=== PATIENT | female | born 1985 ===

== ENCOUNTER 2017-07-10 02:19 | Emergency (ER) | payer OTHER ==
[2017-07-10 02:33] VITALS: RESP 16; TEMP 97.1
--- NOTE | 2017-07-10 02:53 | ED PDOC ---
Arrival/HPI - General Chief Complaint: Female Genitourinary Time Seen by Provider: 07/10/17 02:50 Historian: Patient - History of Present Illness Narrative History of Present Illness (Text): 07/10/17 02:57 32 year old female (A1) at 6 weeks gestation, with no significant past medical history, presents to the Emergency Department complaining of lower abdominal pain and vaginal bleeding since earlier this evening. Patient states confirming her through home test and did not visit a visit. Patient informs her last menstrual cycle was in May. Patient denies any STIs, syncopy, fever, chills, chest pain, shortness of breath , nausea, vomiting or any other complaints. Time/Duration: 4-6 hours Symptom Onset: Gradual Symptom Course: Unchanged Activities at Onset: Light Context: Home Past Medical History - Provider Review Nursing Documentation Reviewed: Yes - Psychiatric Hx Substance Use: No Family/Social History - Physician Review Nursing Documentation Reviewed: Yes Family/Social History: Unknown Family HX Smoking Status: Never Smoked Hx Alcohol Use: Yes Frequency of alcohol use: Socially Hx Substance Use: No Allergies/Home Meds Allergies/Adverse Reactions: Allergies No Known Allergies Allergy (Verified 07/10/17 02:35) Review of Systems - Physician Review All systems were reviewed & negative as marked: Yes - Review of Systems Constitutional: Normal. absent: Fevers Eyes: Normal ENT: Normal Respiratory: Normal. absent: SOB Cardiovascular: Normal. absent: Chest Pain Gastrointestinal: Abdominal Pain (lower abdominal pain ). absent: Nausea, Vomiting Genitourinary Female: Vaginal Bleeding Musculoskeletal: Normal Skin: Normal Neurological: Normal Endocrine: Normal Hemo/Lymphatic: Normal Psychiatric: Normal Physical Exam Vital Signs Reviewed: Yes Vital Signs Temp Pulse Resp BP Pulse Ox 07/10/17 04:25 75 16 104/75 99 07/10/17 02:29 97.1 F L 70 16 112/76 100 Temperature: Afebrile Blood Pressure: Normal Pulse: Regular Respiratory Rate: Normal Appearance: Positive for: Well-Appearing, Non-Toxic, Comfortable Pain Distress: None Mental Status: Positive for: Alert and Oriented X 3 - Systems Exam Head: Present: Atraumatic, Normocephalic Pupils: Present: PERRL Extroacular Muscles: Present: EOMI Conjunctiva: Present: Normal Mouth: Present: Moist Mucous Membranes Neck: Present: Normal Range of Motion Respiratory/Chest: Present: Clear to Auscultation, Good Air Exchange. No: Respiratory Distress, Accessory Muscle Use Cardiovascular: Present: Regular Rate and Rhythm, Normal S1, S2. No: Murmurs Abdomen: Present: Tenderness (diffused lower abdominal mild discomfort to palpation ), Normal Bowel Sounds. No: Distention, Peritoneal Signs, Rebound, Guarding Genitourinary/Pelvic Exam: Present: Vaginal Bleeding (10 cc of blood in vault ) , Cervical os Closed. No: Adenexal Tenderness, Adenexal Mass Back: Present: Normal Inspection Upper Extremity: Present: Normal Inspection. No: Cyanosis, Edema Lower Extremity: Present: Normal Inspection. No: Edema Neurological: Present: GCS=15, CN II-XII Intact, Speech Normal Skin: Present: Warm, Dry, Normal Color. No: Rashes Psychiatric: Present: Alert, Oriented x 3, Normal Insight, Normal Concentration Medical Decision Making ED Course and Treatment: 07/10/17 02:52 Impression: 32 year old female presents to the Emergency Department for vaginal bleeding. Differential Diagnosis included but are not limited to: ectopic vs threatened miscarriage Plan: -- Urinalysis -- Blood Type and Screen -- transvaginal US -- Reassess and disposition Progress Notes: 07/10/17 03:58 Transabdominal OB ultrasound reviewed by radiologist, shows: FINDINGS: Gestation: No intrauterine gestational sac. Uterus/cervix: Endometrium: 0.9 cm in thickness. Closed cervix. Ovaries: Normal ovaries. No adnexal masses. Free fluid: No significant free fluid. IMPRESSION: 1. No intrauterine gestation. DDX: Early IUP, missed , ectopic 07/10/17 03:58 Transvaginal Ultrasound reviewed by radiologist, shows: FINDINGS: Gestation: No intrauterine gestational sac. Uterus/cervix: Endometrium: 0.9 cm in thickness. Closed cervix. Ovaries: Normal ovaries. No adnexal masses. Free fluid: No significant free fluid. IMPRESSION: 1. No intrauterine gestation. DDX: Early IUP, missed , ectopic . 07/10/17 04:[address] Fallon, who feels the is on its very early stage. He asks patient to visit [facility] in 48 hours for a repeat hCG. If however, patient faces any worsening symptoms in regards to abdominal pain, syncope or heavy vaginal bleeding, patient is instructed to visit the nearest Emergency Department . - Lab Interpretations Lab Results: 07/10/17 03:05 07/10/17 03:05 Lab Results 07/10/17 03:53: Blood Type Confirm O POSITIVE 07/10/17 03:15: Urine Color Red, Urine Appearance Cloudy, Urine pH 7.5, Ur Specific [place] 1.020, Urine Protein >=300 H, Urine Glucose (UA) Negative, Urine Ketones 15 H, Urine Blood Large H, Urine Nitrate Positive H, Urine Bilirubin Large H, Urine Urobilinogen 2.0 H, Ur Leukocyte Esterase Large H, Urine RBC 15 - 20, Urine WBC 5 - 10, Ur Epithelial Cells 0 - 2, Urine Bacteria Small 07/10/17 03:05: Blood Type O POSITIVE, Antibody Screen Negative, BBK History Checked No verified bt 07/10/17 03:05: Beta HCG, Quant 1807.70 H 07/10/17 03:05: Sodium 140, Potassium 4.4, Chloride 107, Carbon Dioxide 24, Anion Gap 13, BUN 10, Creatinine 0.7, Est GFR ( Amer) > 60, Est GFR (Non- Af Amer) > 60, Random Glucose 91, Calcium 10.7 H, Total Bilirubin 0.5, AST 39 H , ALT 29, Alkaline Phosphatase 55, Total Protein 7.7, Albumin 4.5, Globulin 3.3 , Albumin/Globulin Ratio 1.4 07/10/17 03:05: WBC 8.7, RBC 4.26, Hgb 12.6, Hct 37.8, MCV 88.7, MCH 29.6, MCHC 33.3, RDW 12.6, Plt Count 166, MPV 10.9, Gran % 62.4, Lymph % (Auto) 26.0, [place] % (Auto) 10.6 H, Eos % (Auto) 0.9 L, Baso % (Auto) 0.1, Gran # 5.44, Lymph # 2.3 , [place] # 0.9 H, Eos # 0.1, Baso # 0.01 - RAD Interpretation Radiology Orders: 07/10/17 02:57 OB TRANSVAGINAL [US] Stat Communications Supervisor: Radiologist - Scribe Statement The provider has reviewed the documentation as recorded by the Scribe Hortensia Jade. All medical record entries made by the Scribe were at my direction and personally dictated by me. I have reviewed the chart and agree that the record accurately reflects my personal performance of the history, physical exam, medical decision making, and the department course for this patient. I have also personally directed, reviewed, and agree with the discharge instructions and disposition. Disposition/Present on Arrival - Present on Arrival Any Indicators Present on Arrival: No History of DVT/PE: No History of Uncontrolled Diabetes: No Urinary Catheter: No History of Decub. Ulcer: No History Surgical Site Infection Following: None - Disposition Have Diagnosis and Disposition been Completed?: Yes Diagnosis: Threatened in first trimester, Ectopic , UTI (urinary tract infection) Disposition: HOME/ ROUTINE Disposition Time: 05:31 Condition: FAIR Additional Instructions: Report to [facility] on thursday for repeat HCG.Return immediately to nearest hospital for any sudden worsening abd pain,vag bleeding or passing outDr Gussack will be expecting you Prescriptions: Nitrofurantoin Macrocrystals [Macrobid] 100 mg PO BID #14 cap Forms: [facility] ([place])
[2017-07-10 03:25] LABS: ALB/GLOB RATIO 1.4 (1.1-1.8); ALBUMIN 4.5 g/dL (3.0-4.8); ALT/SGPT 29 U/L (7-56); AST/SGOT 39 U/L (14-36); BLOOD UREA NITROGEN 10 mg/dL (7-21); CALCIUM 10.7 mg/dL (8.4-10.5); GFR AFRICAN-AMERICAN > 60; GFR NON-AFRICAN AMERICAN > 60
[2017-07-10 03:29] LABS: PH,URINE 7.5 (4.7-8.0); URINE BILIRUBIN LARGE (NEGATIVE); URINE BLOOD LARGE (NEGATIVE); URINE GLUCOSE (UA) NEGATIVE (NEGATIVE); URINE LEUKOCYTE ESTERASE LARGE Leu/uL (NEGATIVE); URINE NITRATE POSITIVE (NEGATIVE); URINE PROTEIN >=300 mg/dL (<30 mg/dL)
[2017-07-10 03:30] LABS: URINE APPEARANCE CLOUDY (CLEAR); URINE COLOR RED (YELLOW)
[2017-07-10 03:37] LABS: URINE BACTERIA SMALL (NEG); URINE EPITHELIAL CELLS 0 - 2 /hpf (0-5); URINE RBC 15 - 20 /hpf (0-2)
[2017-07-10 03:51] LABS: BASO # 0.01 K/mm3 (0.0-2.0); BASO % 0.1 % (0.0-3.0); EOS # 0.1 (0.0-0.7); EOS % 0.9 % (1.5-5.0); GRAN # 5.44 (1.4-6.5); GRAN % 62.4 % (50.0-68.0); HEMOGLOBIN 12.6 g/dL (12.0-16.0); LYMPH # 2.3 (1.2-3.4); MEAN CELL VOLUME 88.7 fl (80.0-105.0); MEAN CORPUSCULAR HEMOGLOBIN 29.6 pg (25.0-35.0); MEAN CORPUSCULAR HGB CONC 33.3 g/dl (31.0-37.0); MEAN PLATELET VOLUME 10.9 fl (7.0-11.0); MONO # 0.9 (0.1-0.6); MONO % 10.6 % (1.0-6.0); RBC 4.26 10^6/uL (3.5-6.1); RED CELL DISTRIBUTION WIDTH 12.6 % (11.5-14.5); WHITE BLOOD COUNT 8.7 10^3/ul (4.5-11.0)
--- NOTE | 2017-07-10 03:55 | US ---
EXAM: US First Trimester, Transabdominal CLINICAL HISTORY: 32 years old, female; Signs and symptoms; Lmp or gestational age (in weeks): 6wks; Other: Bleeding; ; Additional info: R/O ectopic TECHNIQUE: Real-time transabdominal obstetrical ultrasound of the maternal pelvis and a first trimester with image documentation. COMPARISON: No relevant prior studies available. FINDINGS: Gestation: No intrauterine gestational sac. Uterus/cervix: Endometrium: 0.9 cm in thickness. Closed cervix. Ovaries: Normal ovaries. No adnexal masses. Free fluid: No significant free fluid. IMPRESSION: 1. No intrauterine gestation. DDX: Early IUP, missed , ectopic . EXAM: US , Transvaginal CLINICAL HISTORY: 32 years old, female; Signs and symptoms; Lmp or gestational age (in weeks): 6wks; Other: Bleeding; ; Additional info: R/O ectopic TECHNIQUE: Real-time transvaginal obstetrical ultrasound of the maternal pelvis and a first trimester with image documentation. Transvaginal imaging was used for better evaluation of the fetus and adnexa. COMPARISON: No relevant prior studies available. FINDINGS: Gestation: No intrauterine gestational sac. Uterus/cervix: Endometrium: 0.9 cm in thickness. Closed cervix. Ovaries: Normal ovaries. No adnexal masses. Free fluid: No significant free fluid.
[2017-07-10 04:26] VITALS: BP 104/75; PULSE 75; O2SAT 99
== END 2017-07-10 04:58 | disposition home or self-care (01) ==
LOC: ED 02:19
DX: O20.0 Threatened abortion (principal); O23.41 Unspecified infection of urinary tract in pregnancy, first trimester; Z3A.01 Less than 8 weeks gestation of pregnancy